=== PATIENT | female | born 1950 | race Caucasian/White ===

== ENCOUNTER 2016-06-22 18:28 | Emergency (ER) ==
[2016-06-22 18:45] VITALS: BP 184/102
[2016-06-22] MEDS ORDERED: DIPHTHERIA/TETANUS ADULT IM ONE (18:53)
[2016-06-22] MEDS ORDERED: XYLOCAINE-MPF 1% INJ ONE (18:53)
--- NOTE | 2016-06-22 19:37 | PROVIDER DOCUMENTATION ---
Addendum entered and electronically signed by Trino Perez PA 20:01: Procedures - LACERATION/WOUND REPAIR/FB Left Face Wound Location: Other: forehead Wound Length: 2cm Wound's Depth, Shape: superficial, linear, contused tissue Irrigated with Saline?: Yes Prepped with: Hibiclens, Kit Utilized, Sterile Drapes Applied Anesthetic: 1%, Lidocaine/Xylocaine Volume of Anesthetic (ml's): 4 Wound Repaired with: Sutures Suture Size/Type: 4.0, Non-Absorbable, Nylon Number of Sutures: 3 Layer Closure?: No Sterile Dressing Applied?: Yes Splint Applied?: No Sling Applied?: No Post Procedure Neurovascular Exam: N/A Procedure Comment: performed by medical student; observed by me; no complications Original Note: HPI-Rash/Wound/ReCheck - General Chief Complaint: Laceration[s] Stated Complaint: HEAD INJURY FROM FALL Time Seen by Provider: 06/22/16 18:50 Source: patient Allergies/Adverse Reactions: Allergies Allergy/AdvReac Type Severity Reaction Status Date / Time No Known Allergies Allergy Verified 08/15/13 15:03 Home Medications: Home Medication List Medication Instructions Recorded Confirmed Last Taken Type No Home Medications 08/15/13 08/15/13 Unknown History - History of Present Illness-Dermatology Nature of Presenting Problem: Pt presents today c complaints of laceration to the left forehead. She reports that she tripped and struck her head on a stereo. No LOC. No blood thinners. No active bleeding. No other issues or complaints. Location: reports: face Quality: reports: painful Severity: reports: mild Onset/Duration: reports: just prior to arrival Timing: reports: still present Context/Associated Symptoms: reports: laceration, bruising/hematoma Locality of Occurance: Home Similar Symptoms Previously?: No Recently seen or treated by another doctor?: No Review of Systems - Adult - REVIEW OF SYSTEMS - ADULT Constitutional: reports: no symptoms reported. denies: chills, fever Eyes: reports: no symptoms reported. denies: discharge, dry eyes Ears, Nose, Mouth & Throat: reports: no symptoms reported. denies: ear discharge, ear pain Cardiovascular: reports: no symptoms reported. denies: chest pain, edema Respiratory: reports: no symptoms reported. denies: chronic cough, cough Gastrointestinal: reports: no symptoms reported. denies: abdominal pain, hematemesis Genitourinary: reports: no symptoms reported. denies: dysuria, discharge Musculoskeletal: reports: no symptoms reported. denies: bone pain, back pain Integumentary: reports: see HPI. denies: mole changes, nail changes Neurological: reports: no symptoms reported. denies: dizziness/vertigo, headache/migraines Psychiatric: reports: no symptoms reported. denies: anxiety, anti-depressant use Endocrine: reports: no symptoms reported Hematologic/Lymphatic: reports: no symptoms reported Allergic/Immunologic: reports: no symptoms reported All Other Systems: Reviewed and Negative Past History - Adult - PAST MEDICAL HISTORY-ADULT Review of Records: reports: Old Records Reviewed, Nursing Assessment Review, Medications Reviewed, Social history reviewed & non-contributory. Major Childhood Illnesses: reports: denies history Cardiovascular: reports: denies history Respiratory: reports: denies history Gastrointestinal: reports: denies history Obstetrical/Gynecological: reports: denies history Genitourinary: reports: denies history Musculoskeletal: reports: denies history Neurological: reports: denies history Psychiatric: reports: denies history Endocrine/Immune: reports: denies history Other Conditions: reports: denies history - PRIOR SURGERIES/PROCEDURES Surgical/Procedure History: reports: reviewed, not pertinent - PRIOR HOSPITALIZATIONS Prior Hospitalizations: reports: for other non-related - IMMUNIZATION STATUS Childhood Immunizations: See Nurse Assessment - FAMILY HISTORY Family History: reviewed, not pertinent Physical Exam-General - PHYSICAL EXAM-ADULT Initial Vital Signs Reviewed: Yes - CONSTITUTIONAL General Appearance: appears well, alert, no apparent distress - EYES Eyes: PERRL/EOMI, pink conjunctivae - HEAD, EARS, NOSE, MOUTH & THROAT HENMT: normocephalic/atraumatic, moist mucous membranes, normal ENT inspection - NECK Neck: non-tender, full range of motion, supple, normal inspection - RESPIRATORY Respiratory: chest non-tender, lungs clear, normal breath sounds, no pleuratic chest pain, no respiratory distress, no accessory muscle use - CARDIOVASCULAR Cardiovascular: normal peripheral pulses, regular rate, rhythm - GASTROINTESTINAL (ABDOMEN) Abdominal Exam: normal bowel sounds, non tender, soft - MUSCULOSKELETAL Back Exam: normal inspection Extremity: normal range of motion, non-tender, normal gait, normal inspection - SKIN Integumentary: normal turgor, warm/dry, laceration(s), tenderness - NEUROLOGIC Neurologic: grossly normal, no motor/sensory deficits - PSYCHIATRIC Psych/Mental Status: normal mood/affect, normal thought content, normal thought process, oriented x 3 Progress - PLAN OF CARE/RESULTS Progress/Plan/Lab Results: Orders Category Date Time Status Suture Tray Set-Up DIRECTED Care 06/22/16 18:53 Active Diphtheria/Tetanus Adult Med 06/22/16 18:53 Discontinued 0.5 ml IM .ONCE ONE Lidocaine 1% Pf [Xylocaine-Mpf 1%] Med 06/22/16 18:53 Discontinued See Dose Instructions INJ NOW ONE Vital Signs Temp Pulse Resp BP Pulse Ox 06/22/16 18:43 97.6 F 102 H 18 184/102 96 No Known Allergies Allergy (Verified 08/15/13 15:03) No Home Medications 08/15/13 Departure - Departure Time of Disposition Order: 19:56 DIAGNOSIS: Forehead laceration Qualifiers: Encounter type: initial encounter Qualified Code(s): S01.81XA - Laceration without foreign body of other part of head, initial encounter Disposition: HOME 01 Certified Medical Emergency: Urgent Condition: Good Additional Instructions: Keep area clean and dry. Follow up in 5-7 days for suture removal. ED Follow Up Instructions: You have been treated by a care provider in the Emergency Department. These instructions are being provided to you so you can have an understanding of how to care for yourself upon discharge. Upon discharge from the Emergency Department, you are responsible for making arrangements for follow-up care by a physician of your choice. Take all prescribed medications as directed. Return to the Emergency Department immediately for any new or worsening symptoms. You may call the Physician Referral phone number at [phone] to obtain a list of Physicians who are taking new patients. Attestation - Physician/ DEISY Attestation Patient care was provided by Advanced Practice Provider:: Yes Advanced Practice Provider:: Trino Perez Advanced Practice Provider documentation review:: The Mid-level provider documentation, treatment plan and medical decision making was reviewed by the physician who agrees with all treatment and medical decision making by the MLP.
== END 2016-06-22 20:05 | disposition home or self-care (01) ==
LOC: P.ED 18:28
DX: S01.81XA Laceration without foreign body of other part of head, initial encounter (principal); W01.0XXA Fall on same level from slipping, tripping and stumbling without subsequent striking against object, initial encounter; Z23 Encounter for immunization
CPT/HCPCS: 90471; 90714

== ENCOUNTER 2016-06-28 14:25 | Emergency (ER) ==
[2016-06-28 14:38] VITALS: BP 166/88
--- NOTE | 2016-06-28 15:29 | PROVIDER DOCUMENTATION ---
HPI-Rash/Wound/ReCheck - General Chief Complaint: Suture/Staple Removal Stated Complaint: SUTURE/STAPLE REMOVAL Time Seen by Provider: 06/28/16 15:24 Allergies/Adverse Reactions: Allergies Allergy/AdvReac Type Severity Reaction Status Date / Time No Known Allergies Allergy Verified 08/15/13 15:03 Home Medications: Home Medication List Medication Instructions Recorded Confirmed Last Taken Type No Home Medications 08/15/13 08/15/13 Unknown History Past History - Adult - PAST MEDICAL HISTORY-ADULT Major Childhood Illnesses: reports: denies history Cardiovascular: reports: denies history Respiratory: reports: denies history Gastrointestinal: reports: denies history Obstetrical/Gynecological: reports: denies history Genitourinary: reports: denies history Musculoskeletal: reports: denies history Neurological: reports: denies history Psychiatric: reports: denies history Endocrine/Immune: reports: denies history Other Conditions: reports: denies history - PRIOR SURGERIES/PROCEDURES Surgical/Procedure History: reports: reviewed, not pertinent - PRIOR HOSPITALIZATIONS Prior Hospitalizations: reports: for other non-related - IMMUNIZATION STATUS Childhood Immunizations: See Nurse Assessment - FAMILY HISTORY Family History: reviewed, not pertinent Departure - Departure Time of Disposition Order: 15:28 DIAGNOSIS: Encounter for removal of sutures Disposition: HOME 01 Certified Medical Emergency: Emergent Condition: Stable Additional Instructions: ED Follow Up Instructions: You have been treated by a care provider in the Emergency Department. These instructions are being provided to you so you can have an understanding of how to care for yourself upon discharge. Upon discharge from the Emergency Department, you are responsible for making arrangements for follow-up care by a physician of your choice. Take all prescribed medications as directed. Return to the Emergency Department immediately for any new or worsening symptoms. You may call the Physician Referral phone number at [phone] to obtain a list of Physicians who are taking new patients. Referrals: Favian Flores MD [STAFF PHYSICIAN] - None,PCP [Primary Care Provider] - Instructions: Suture Removal, Care After
--- NOTE | 2016-06-28 15:31 | PROVIDER DOCUMENTATION ---
HPI-Rash/Wound/ReCheck - General Source: patient, family - History of Present Illness-Dermatology Location: reports: face (L forehead) Quality: reports: none Onset/Duration: reports: 6 days ago Timing: reports: still present, intermittent Context/Associated Symptoms: reports: other (suture removal) Identifiable cause?: Yes (fall ) Exposure: reports: unknown cause Locality of Occurance: Home Similar Symptoms Previously?: Yes Recently seen or treated by another doctor?: Yes - Recheck Treated days ago.: 6 Previous Treatment: other (suture removal) Antibiotics given: none Symptoms since procedure:: reports: no complaints <Allyssa Gonzales - Last Filed: 06/28/16 15:27> <Shahbaz Hernandez - Last Filed: 06/28/16 15:32> - General Chief Complaint: Suture/Staple Removal Stated Complaint: SUTURE/STAPLE REMOVAL Time Seen by Provider: 06/28/16 15:24 Allergies/Adverse Reactions: Allergies Allergy/AdvReac Type Severity Reaction Status Date / Time No Known Allergies Allergy Verified 08/15/13 15:03 Home Medications: Home Medication List Medication Instructions Recorded Confirmed Last Taken Type No Home Medications 08/15/13 08/15/13 Unknown History - History of Present Illness-Dermatology Nature of Presenting Problem: Pt is 65 y/o F presents to the ED with suture removal. Pt states falling Friday. Pt states hitting head on stereo. Pt denies pain. Pt denies F (Allyssa Gonzales) Review of Systems - Adult - REVIEW OF SYSTEMS - ADULT Constitutional: reports: no symptoms reported Eyes: reports: no symptoms reported Ears, Nose, Mouth & Throat: reports: no symptoms reported Cardiovascular: reports: no symptoms reported Respiratory: reports: no symptoms reported Gastrointestinal: reports: no symptoms reported Genitourinary: reports: no symptoms reported Musculoskeletal: reports: no symptoms reported Integumentary: reports: no symptoms reported Neurological: reports: no symptoms reported Psychiatric: reports: no symptoms reported Endocrine: reports: no symptoms reported Hematologic/Lymphatic: reports: no symptoms reported Allergic/Immunologic: reports: no symptoms reported All Other Systems: Reviewed and Negative <Allyssa Gonzales - Last Filed: 06/28/16 15:27> Past History - Adult - PAST MEDICAL HISTORY-ADULT Review of Records: reports: Nursing Assessment Review, Medications Reviewed, Social history reviewed & non-contributory. Major Childhood Illnesses: reports: denies history Cardiovascular: reports: denies history Respiratory: reports: denies history Gastrointestinal: reports: denies history Obstetrical/Gynecological: reports: denies history Genitourinary: reports: denies history Musculoskeletal: reports: denies history Neurological: reports: denies history Psychiatric: reports: denies history Endocrine/Immune: reports: denies history Other Conditions: reports: denies history - PRIOR SURGERIES/PROCEDURES Surgical/Procedure History: reports: reviewed, not pertinent, - PRIOR HOSPITALIZATIONS Prior Hospitalizations: reports: for other non-related - IMMUNIZATION STATUS Childhood Immunizations: See Nurse Assessment Flu Vaccine: See Nurse Assessment - FAMILY HISTORY Family History: reviewed, not pertinent - SOCIAL HISTORY Smoking: denies Substance Use: denies Living Situation: family <Allyssa Gonzales - Last Filed: 06/28/16 15:27> Physical Exam-General - PHYSICAL EXAM-ADULT Initial Vital Signs Reviewed: Yes - CONSTITUTIONAL General Appearance: appears well, alert, no apparent distress - EYES Eyes: PERRL/EOMI, pink conjunctivae, fundi clear, no AV nicking - HEAD, EARS, NOSE, MOUTH & THROAT HENMT: normocephalic/atraumatic, moist mucous membranes, normal ENT inspection, TMs normal, pharynx normal - NECK Neck: non-tender, full range of motion, supple, normal inspection - RESPIRATORY Respiratory: chest non-tender, lungs clear, normal breath sounds, no pleuratic chest pain, no respiratory distress, no accessory muscle use - CARDIOVASCULAR Cardiovascular: normal peripheral pulses, regular rate, rhythm, no edema, no gallop, no JVD, no murmur - GASTROINTESTINAL (ABDOMEN) Abdominal Exam: normal bowel sounds, non tender, soft, no organomegaly, no pulsatile mass - LYMPHATIC Lymphatic: no adenopathy - MUSCULOSKELETAL Back Exam: normal inspection, no CVA tenderness, no vertebral tenderness Extremity: normal range of motion, non-tender, normal gait, normal inspection, no pedal edema, no calf tenderness, normal capillary refill - SKIN Integumentary: normal color, normal turgor, warm/dry, ecchymosis (to L forehead) , other (suture removed to L forehead) - NEUROLOGIC Neurologic: grossly normal - PSYCHIATRIC Psych/Mental Status: normal mood/affect, oriented x 3 <Allyssa Gonzales - Last Filed: 06/28/16 15:27> Progress <Allyssa Gonzales - Last Filed: 06/28/16 15:27> <Shahbaz Hernandez - Last Filed: 06/28/16 15:32> - PLAN OF CARE/RESULTS Progress/Plan/Lab Results: Vital Signs - 24 hr 06/28/16 14:36 Temperature 97.8 F Pulse Rate 96 H Respiratory 18 Rate Blood Pressure 166/88 O2 Sat by Pulse 100 Oximetry 1535 - 3 sutures removed from L forehead by Dr. Hernandez (Allyssa Gonzales) Departure <Allyssa Gonzales - Last Filed: 06/28/16 15:27> - Departure Time of Disposition Order: 15:32 Certified Medical Emergency: Emergent <Shahbaz Hernandez - Last Filed: 06/28/16 15:32> - Departure DIAGNOSIS: Encounter for removal of sutures Disposition: HOME 01 Condition: Stable Additional Instructions: ED Follow Up Instructions: You have been treated by a care provider in the Emergency Department. These instructions are being provided to you so you can have an understanding of how to care for yourself upon discharge. Upon discharge from the Emergency Department, you are responsible for making arrangements for follow-up care by a physician of your choice. Take all prescribed medications as directed. Return to the Emergency Department immediately for any new or worsening symptoms. You may call the Physician Referral phone number at [phone] to obtain a list of Physicians who are taking new patients. Referrals: Favian Flores MD [STAFF PHYSICIAN] - None,PCP [Primary Care Provider] - Instructions: Suture Removal, Care After Attestation - Scribe Verification/Attestation Scribe:: Allyssa Gonzales Acting as Scribe for:: Shahbaz Hernandez Scribe documention review:: This chart was documented by a scribe and accurately reflects the service the provider performed and the decisions made by the provider. <Allyssa Gonzales - Last Filed: 06/28/16 15:27> Physician Attestation
== END 2016-06-28 15:45 | disposition home or self-care (01) ==
LOC: P.ED 14:25
DX: S01.81XD Laceration without foreign body of other part of head, subsequent encounter (principal); S00.83XD Contusion of other part of head, subsequent encounter; W19.XXXD Unspecified fall, subsequent encounter; W22.8XXD Striking against or struck by other objects, subsequent encounter
CPT/HCPCS: 99282

== ENCOUNTER 2018-12-28 16:17 | Inpatient (IN) ==
[2018-12-28] MEDS ORDERED: ASPIRIN PO ONE (16:31)
[2018-12-28 17:19] LABS: BASO# 0.03 X1000 (0.0-0.2); BASO% 0.4 % (0.0-0.8); HEMATOCRIT 35.1 % (37.0-47.0); HEMOGLOBIN 11.1 g/dL (12.0-16.0); IMM GRAN# 0.01 X1000 (0.0-0.04); IMM GRAN% 0.1 % (0.0-0.5); LYMPH# 1.39 X1000 (1.2-3.4); LYMPH% 19.3 % (20.5-51.1); MCH 25.7 PG (27-31); MCHC 31.6 g/dL (33-37); MCV 81.3 FL (81-99); MONO# 0.43 X1000 (0.11-0.59); MPV 8.3 FL (7.4-10.4); NEUT# 5.34 X1000 (1.4-6.5); NEUT% 74.2 % (42.2-75.2); PLT 206 X1000 (130-400); RBC 4.32 XMIL (4.2-5.4)
[2018-12-28] MEDS ORDERED: DUONEB (A & A) INH ONE (17:22)
[2018-12-28] MEDS ORDERED: LASIX IV ONE (17:22)
[2018-12-28] MEDS ORDERED: NS 500 ML IV ONE (17:22)
--- NOTE | 2018-12-28 17:28 | PROVIDER DOCUMENTATION ---
HPI-Respiratory General - General Chief Complaint: Shortness of Breath Stated Complaint: SOB Time Seen by Provider: 12/28/18 17:03 Source: patient, family Allergies/Adverse Reactions: Patient Allergies Allergy/AdvReac Type Severity Reaction Status Date / Time No Known Allergies Allergy Verified 12/28/18 17:48 Home Medications: Home Medication List Medication Instructions Recorded Confirmed Last Taken Type Ibuprofen 4 mg PO BID PRN 12/28/18 12/28/18 Unknown History - History of Present Illness-Resp Nature of Presenting Problem: C/O SOB worsening over the last week, difficulty sleeping secondary to it. Usually sleeps in a recliner, but has been too short of breath. Also notes VASQUEZ and PND. Also has polydypsia and polyuria. Also has had cellulitis left calf in the past, and this has gotten worse over the last week. Denies fever, chills, n/v. Does have chest tightness, and states her legs are more swollen than usual. Has never had these symptoms before. Rarely comes to the doctor. Just got assigned Silvia Read as a PCP, and has an appointment in 3 days, but states she couldn't wait due to SOB. Quality of Pain: reports: pressure Severity in ED: reports: mild Onset/Duration: reports: last week Timing: reports: still present, constant, getting worse Context: denies: recent URI Exposure: reports: unknown cause Cough Quality/Degree: reports: mild Episode Frequency: no prior episodes Current Respiratory Medication Therapy: Initiated none Modifying Factors: improves with: rest, sitting upright. worse with: exertion, lying down Associated Symptoms: reports: chest pain/soreness, cough, shortness of breath, short of breath, sweaty Similar Symptoms Previously?: No Recently seen or treated by another doctor?: No Review of Systems - Adult - REVIEW OF SYSTEMS - ADULT Constitutional: reports: see HPI, weight gain. denies: fever Eyes: reports: discharge (left eye, due to bliondness for many years) Ears, Nose, Mouth & Throat: reports: no symptoms reported Cardiovascular: reports: see HPI, chest pain, edema, orthopnea, PND Respiratory: reports: see HPI, cough, dyspnea on exertion, shortness of breath. denies: chronic cough, excessive sputum production, hemoptysis, pleurisy, wheezing Gastrointestinal: reports: no symptoms reported Genitourinary: reports: no symptoms reported Musculoskeletal: reports: no symptoms reported Integumentary: reports: rash (left calf extending upwards medial thigh) Neurological: reports: no symptoms reported Psychiatric: reports: no symptoms reported Endocrine: reports: no symptoms reported Hematologic/Lymphatic: reports: no symptoms reported Allergic/Immunologic: reports: no symptoms reported All Other Systems: Reviewed and Negative Past History - Adult - PAST MEDICAL HISTORY-ADULT Review of Records: reports: Old Records Reviewed, Nursing Assessment Review, Medications Reviewed, Social history reviewed & non-contributory. Major Childhood Illnesses: reports: denies history Cardiovascular: reports: denies history Respiratory: reports: denies history Gastrointestinal: reports: cholelithiasis Obstetrical/Gynecological: reports: denies history Genitourinary: reports: chronic UTI's Musculoskeletal: reports: denies history Neurological: reports: denies history Psychiatric: reports: denies history Endocrine/Immune: reports: denies history Other Conditions: reports: blindness - PRIOR SURGERIES/PROCEDURES Surgical/Procedure History: reports: reviewed, not pertinent, , orthopedic (extremity) (ankle), other (eye) - PRIOR HOSPITALIZATIONS Prior Hospitalizations: reports: for other non-related - IMMUNIZATION STATUS Childhood Immunizations: See Nurse Assessment Flu Vaccine: See Nurse Assessment - FAMILY HISTORY Family History: reviewed, not pertinent - SOCIAL HISTORY Smoking: non-smoker Substance Use: none/never Alcohol Use Frequency: never Living Situation: family Physical Exam-General - PHYSICAL EXAM-ADULT Initial Vital Signs Reviewed: Yes (Tachycardia, hypertensive, tachypneic) - CONSTITUTIONAL General Appearance: alert, mild distress, obese, slow to respond - EYES Eyes: conjuctival exudate (left eye), other (blind both eyes) - HEAD, EARS, NOSE, MOUTH & THROAT HENMT: normocephalic/atraumatic, moist mucous membranes, normal ENT inspection, pharynx normal, other (poor dentition) - NECK Neck: non-tender, full range of motion, supple - RESPIRATORY Respiratory: chest non-tender, no pleuratic chest pain, no respiratory distress, no accessory muscle use, decreased breath sounds, rhonchi, dull on percussion, increased rate - CARDIOVASCULAR Cardiovascular: no gallop, no JVD, no murmur, tachycardia, PMI displaced laterally, other (occasional ectopy) - GASTROINTESTINAL (ABDOMEN) Abdominal Exam: normal bowel sounds, non tender, soft, no organomegaly, no pulsatile mass - LYMPHATIC Lymphatic: no adenopathy - MUSCULOSKELETAL Back Exam: normal inspection, no CVA tenderness, no vertebral tenderness Extremity: normal range of motion, non-tender, normal gait, no calf tenderness, normal capillary refill, pedal edema (4+ bilateral pitting) - SKIN Integumentary: normal turgor, warm/dry, rash (scaly erythematous rash posterior calf with raised edges, blanches on palpation, no warm, no fluctuance) - NEUROLOGIC Neurologic: no motor/sensory deficits, abnormal qa consultant II-XII (blind in both eyes), negative romberg's sign. negative: abnormal gait - PSYCHIATRIC Psych/Mental Status: normal mood/affect, normal thought content, normal thought process, oriented x 3 - HEART Score HEART Score: History: Slightly Suspicious HEART Score: Age: > or = 65 Years HEART Score: Risk Factors for Atherosclerotic Disease: 1 or 2 Risk Factors HEART Score: Troponin: < or = Normal Limit Progress - PLAN OF CARE/RESULTS Progress/Plan/Lab Results: Laboratory Results - last 24 hr 12/28/18 12/28/18 12/28/18 17:05 17:05 17:05 WBC 7.20 RBC 4.32 Hgb 11.1 L Hct 35.1 L MCV 81.3 MCH 25.7 L MCHC 31.6 L RDW Std Deviation 17.0 H Plt Count 206 MPV 8.3 Immature Gran % (Auto) 0.1 Neut % (Auto) 74.2 Lymph % (Auto) 19.3 L [place] % (Auto) 6.0 Eos % (Auto) 0.0 Baso % (Auto) 0.4 Immature Gran # (Auto) 0.01 Neut # (Auto) 5.34 Lymph # (Auto) 1.39 [place] # (Auto) 0.43 Eos # (Auto) 0.00 Baso # (Auto) 0.03 PT INR PTT (Actin FS) Specimen Type Sample Site pH pCO2 pO2 HCO3 Base Excess Oxyhemoglobin ABG O2 Sat (Calculated) ABG O2 Saturation ABG Carboxyhemoglobin ABG Methemoglobin Garo Test A-a O2 Difference Total Hemoglobin Lactate Liter Flow Blood Gas Modality FiO2 % Sodium 134 L Potassium 4.1 Chloride 96 L Carbon Dioxide 26 Anion Gap 12 BUN 12 Creatinine 0.6 Estimated GFR/1.73 m2 > 60 BUN/Creatinine Ratio 20 Glucose 152 H Calculated Osmolality 271 Calcium 8.4 L Total Bilirubin 0.60 AST 22 ALT 9 L Alkaline Phosphatase 151 H Creatine Kinase 42 Troponin T [id number]-T-Qbapjfkvwib Pept 6121 H Total Protein 6.8 Albumin 3.5 Globulin 3.0 Albumin/Globulin Ratio 1.0 Plasma Lactate Urine Source Urine Color Urine Clarity Urine pH Ur Specific [place] Urine Protein Urine Ketones Urine Blood Urine Nitrite Urine Bilirubin Urine Urobilinogen Urine Microscopic RBC Urine WBC Urine Microscopic WBC Ur Epithelial Cells Urine Crystals Urine Bacteria Urine Casts Urine Yeast Urine Glucose 12/28/18 12/28/18 12/28/18 17:05 17:05 17:05 WBC RBC Hgb Hct MCV MCH MCHC RDW Std Deviation Plt Count MPV Immature Gran % (Auto) Neut % (Auto) Lymph % (Auto) [place] % (Auto) Eos % (Auto) Baso % (Auto) Immature Gran # (Auto) Neut # (Auto) Lymph # (Auto) [place] # (Auto) Eos # (Auto) Baso # (Auto) PT 14.1 INR 1.04 PTT (Actin FS) 32.6 Specimen Type Sample Site pH pCO2 pO2 HCO3 Base Excess Oxyhemoglobin ABG O2 Sat (Calculated) ABG O2 Saturation ABG Carboxyhemoglobin ABG Methemoglobin Garo Test A-a O2 Difference Total Hemoglobin Lactate Liter Flow Blood Gas Modality FiO2 % Sodium Potassium Chloride Carbon Dioxide Anion Gap BUN Creatinine Estimated GFR/1.73 m2 BUN/Creatinine Ratio Glucose Calculated Osmolality Calcium Total Bilirubin AST ALT Alkaline Phosphatase Creatine Kinase Troponin T < 0.010 Fjl-[id number]-Yrxpridazju Pept Total Protein Albumin Globulin Albumin/Globulin Ratio Plasma Lactate 1.3 Urine Source Urine Color Urine Clarity Urine pH Ur Specific [place] Urine Protein Urine Ketones Urine Blood Urine Nitrite Urine Bilirubin Urine Urobilinogen Urine Microscopic RBC Urine WBC Urine Microscopic WBC Ur Epithelial Cells Urine Crystals Urine Bacteria Urine Casts Urine Yeast Urine Glucose 12/28/18 12/28/18 17:28 17:50 WBC RBC Hgb Hct MCV MCH MCHC RDW Std Deviation Plt Count MPV Immature Gran % (Auto) Neut % (Auto) Lymph % (Auto) [place] % (Auto) Eos % (Auto) Baso % (Auto) Immature Gran # (Auto) Neut # (Auto) Lymph # (Auto) [place] # (Auto) Eos # (Auto) Baso # (Auto) PT INR PTT (Actin FS) Specimen Type ARTERIAL Sample Site L RADIAL pH 7.47 H pCO2 38 pO2 100 HCO3 27.9 H Base Excess 3.9 H Oxyhemoglobin 95.4 ABG O2 Sat (Calculated) 16.0 ABG O2 Saturation 98.8 ABG Carboxyhemoglobin 2.30 ABG Methemoglobin 1.1 Garo Test YES A-a O2 Difference 52.0 Total Hemoglobin 11.8 Lactate 1.10 Liter Flow 2.0 Blood Gas Modality CANNULA FiO2 % 28.0 Sodium Potassium Chloride Carbon Dioxide Anion Gap BUN Creatinine Estimated GFR/1.73 m2 BUN/Creatinine Ratio Glucose Calculated Osmolality Calcium Total Bilirubin AST ALT Alkaline Phosphatase Creatine Kinase Troponin T [id number]-T-Zgpgctzklvv Pept Total Protein Albumin Globulin Albumin/Globulin Ratio Plasma Lactate Urine Source CATH Urine Color YELLOW Urine Clarity VERY CLOUDY A Urine pH 6.0 Ur Specific [place] 1.015 Urine Protein 1+(30 mg/dL) A Urine Ketones NEGATIVE Urine Blood 4+ Urine Nitrite POSITIVE A Urine Bilirubin NEGATIVE Urine Urobilinogen NORMAL Urine Microscopic RBC TNTC A Urine WBC 2+ A Urine Microscopic WBC TNTC A Ur Epithelial Cells >10 A Urine Crystals NONE SEEN Urine Bacteria 1+ Urine Casts NONE SEEN Urine Yeast NONE SEEN Urine Glucose NEGATIVE Orders Category Date Time Status Admit - [facility] Routine AdmDCTranf 12/28/18 22:23 Active Cardiac Monitoring DIRECTED Care 12/28/18 16:31 Completed Chung Cath Insertion ORDERED Care 12/28/18 17:20 Completed Oxygen Therapy- ED Nursing DIRECTED Care 12/28/18 16:31 Completed Saline Loc NOW Care 12/28/18 16:31 Completed Vital Signs Order Q 8-HR .ASSESS Care 12/28/18 22:23 Active Z-Document. for Tele Applied ORDERED Care 12/28/18 22:23 Completed Heart Healthy Diet Diet 12/28/18 22:23 Active CHEST-PORTABLE [RAD] Stat Exams 12/28/18 17:21 Completed ABG [RESP] Routine Lab 12/28/18 17:28 Completed BLOOD CULTURE [BLDCUL] Stat Lab 12/28/18 17:35 Results CBC WITH ELECTRONIC DIFF [HEME] Stat Lab 12/28/18 17:05 Completed CK PROFILE [SP CHEM] Stat Lab 12/28/18 17:05 Completed COMPREHENSIVE METABOLIC PANEL [CHEM] Stat Lab 12/28/18 17:05 Completed LACTATE, PLASMA [CHEM] Stat Lab 12/28/18 17:05 Completed PRO B-NATRIURETIC PEPTIDE Stat Lab 12/28/18 17:05 Completed PROTIME WITH INR [COAG] Stat Lab 12/28/18 17:05 Completed PTT [COAG] Stat Lab 12/28/18 17:05 Completed TROPONIN T Stat Lab 12/28/18 17:[address] W/POSS RFLX CULT [URINALYSIS] Stat Lab 12/28/18 17:50 Completed 0.9% Sodium Chloride Inj [Ns] 500 ml Med 12/28/18 17:22 Discontinued IV 999 mls/hr Albuterol 2.5MG/Ipratrop 0.5MG [Duoneb (A & A)] Med 12/28/18 17:22 Discontinued 3 ml INH NOW ONE Aspirin Med 12/28/18 16:31 Discontinued 325 mg PO NOW ONE Clonidine [Catapres] Med 12/28/18 19:33 Discontinued 0.2 mg PO NOW ONE Furosemide [Lasix] Med 12/28/18 17:22 Discontinued 40 mg IV NOW ONE Nitroglycerin Med 12/28/18 19:37 Discontinued 1 inch TOP NOW ONE Aerosol Treatments Routine Oth 12/28/18 17:22 Completed Aerosol Treatments Stat Oth 12/28/18 17:22 Completed Oxygen Device Routine Oth 12/28/18 22:23 Active Telemetry [OM.EQ] Routine Oth 12/28/18 22:23 Active EKG [EKG] Stat Ther 12/28/18 16:31 Draft Transfer/Admit Order [TRANSFER] Routine Transfer 12/28/18 20:36 Completed Result Diagrams: 12/28/18 17:05 12/28/18 17:05 - REASSESSMENT Reassessment #1 Time Reassessed: 18:23 Status: improving (Given ASA, duoneb and lasix. Awaiting troponin and Pro0-BNP) Reassessment #2 Time Reassessed: 07:39 Status: unchanged (Although I passed this patient off at shift change to Dr. Hernandez, I find no documentation in the provider notes regarding her disposition. I have read nursing notes and have surmised that she was admitted to Dr. House, hospitalist for new onset CHF with volume overload and UTI and dyspnea.) - EKG 1 Time of EKG reading by physician:: 17:00 EKG Read and Signed by:: Zach Lafleur EKG Interpretation (*Must complete 3 of following elements*): Abnormal Rate: 111 Rhythm: suns tachycardia [place]: normal QRS: RBB, poor R wave progression, LVH UT Interval: normal ST Wave: non-specific ST changes Prior EKG Comparison: no prior EKG - CHANGE OF SHIFT REPORT (ED Provider) 1 Report Given and Care Transferred to:: [facility] Time of Transfer: 19:00 Items Pending: Labs, Other (re-evaluation) Departure - Departure Date of Disposition Decision: 12/28/18 Time of Disposition Decision: 22:00 DIAGNOSIS: Dyspnea and respiratory abnormalities, New onset of congestive heart failure UTI (urinary tract infection) Qualifiers: Urinary tract infection type: acute cystitis Hematuria presence: with hematuria Qualified Code(s): N30.01 - Acute cystitis with hematuria Pressure ulcer of buttock Qualifiers: Pressure injury stage: stage 2 Laterality: unspecified laterality Qualified Code(s): L89.302 - Pressure ulcer of unspecified buttock, stage 2 Disposition: ADMITTED INPATIENT 09 Certified Medical Emergency: Emergent Condition: Stable - Critical Care Note This patient required my direct & personal management of CC.: No Attestation - Physician/ DEISY Attestation Patient care was provided by Advanced Practice Provider:: No The physician spent face to face time with patient:: Yes Advanced Practice Provider documentation review:: Supervising physician onsite and consulted in the evaluation and care of this patient. The physician did have a face to face encounter with the patient.
--- NOTE | 2018-12-28 17:39 | EKG Report ---
Test Performed on : 12/28/2018 4:56:14 PM Test Reason : sob chest pressure Blood Pressure : / mmHG Vent. Rate : 111 BPM Atrial Rate : 111 BPM P-R Int : 170 ms QRS Dur : 132 ms QT Int : 356 ms P-R-T Axes : 043 -29 012 degrees QTc Int : 484 ms Sinus tachycardia. with occasional premature ventricular complexes. Possible Left atrial enlargement Right bundle branch block Left ventricular hypertrophy Abnormal ECG No previous ECGs available Unconfirmed Result
[2018-12-28 17:44] LABS: INR 1.04; PROTIME 14.1 Seconds (11.0-16.0); PTT 32.6 Seconds (22.3-41.8)
[2018-12-28 17:50] LABS: BE 3.9 mmoll (-3.0-3.0); BLOOD TYPE ARTERIAL; HCO3-(ACT) 27.9 mmoll (20.0-26.0); METHB 1.1 % (0.0-1.5); O2HB 95.4 % (95.0-99.0); PCO2(98.6) 38 mmHg (35-45); PO2(98.6) 100 mmHg (60-100); SAMPLE BLOOD; SAO2 98.8 % (95.0-100.0); THB 11.8 g/dL (11.5-17.4); pH(98.6) 7.47 (7.35-7.45)
[2018-12-28 17:54] LABS: ALLEN TEST YES; MODALITY CANNULA
[2018-12-28 18:08] LABS: AGAP 12; ALBUMIN 3.5 g/dL (3.5-5.0); ALKALINE PHOSPHATASE 151 U/L (32-104); BUN 12 mg/dL (8-22); CALCIUM 8.4 mg/dL (8.8-10.2); CHLORIDE 96 mmol/L (98-107); CK PROFILE 42 U/L (24-173); COSMO 271; CREATININE 0.6 mg/dL (0.5-0.9); ESTIMATED GFR > 60; GLUCOSE 152 mg/dL (70-104); GOT 22 U/L (10-30); GPT 9 U/L (10-36); POTASSIUM 4.1 mmol/L (3.5-5.1); SODIUM 134 mmol/L (136-145); TCO2 26 mmol/L (25-35); TOTAL PROTEIN 6.8 g/dL (6.3-8.3)
--- NOTE | 2018-12-28 18:24 | ED EKG INTERP ---
This chart was entered by Azalia Naik Scribe, acting as scribe for Zach Lafleur MD. EKG Interpretation - EKG Time of EKG reading by physician:: 17:00 EKG Read and Signed by:: Zach Lafleur EKG Interpretation (*Must complete 3 of following elements*): Abnormal (possible left atrila enlargement) Rate: 111 Rhythm: Sinus tachycardia QRS: RBB, LVH, PVC's (occasional) ST Wave: normal Attestation - Physician/ DEISY Attestation Patient care was provided by Advanced Practice Provider:: No The physician spent face to face time with patient:: Yes Advanced Practice Provider documentation review:: Supervising physician onsite and consulted in the evaluation and care of this patient. The physician did have a face to face encounter with the patient. This chart was documented by the indicated scribe, (Azalia Naik Scribe) and accurately reflects the services I performed and decisions made by , Zach Lafleur MD, as attested by the provider's signature.
--- NOTE | 2018-12-28 18:34 | Diag Imaging Result Doc PS360 ---
EXAM: CHEST-PORTABLE INDICATION: dyspnea TECHNIQUE: One view COMPARISON: 03/10/2019 FINDINGS: Lung volumes are very low. This causing central vascular crowding. There may be a component of mild pulmonary venous congestion as well. There is no discrete pleural fluid collection or pneumothorax. There is stable cardiomegaly. IMPRESSION: Low lung volumes, cardiomegaly, and possible mild pulmonary venous congestion. Electronically signed by Jagdeep Dawn 12/28/2018 6:31 PM
[2018-12-28 19:01] LABS: BILIRUBIN URINE NEGATIVE (NEGATIVE); BLOOD URINE 4+ (NEGATIVE); GLUCOSE URINE NEGATIVE (NEGATIVE); KETONE URINE NEGATIVE (NEGATIVE); LEUKOCYTES URINE 2+ (NEGATIVE); NITRITE URINE POSITIVE (NEGATIVE); PROTEIN URINE 1+(30 mg/dL) mg/dL (NEGATIVE); SP GRAVITY URINE 1.015; URINE BACTERIA 1+ /HFP; URINE EPITHELIAL CELLS >10 /HPF (<10); URINE RBC TNTC /HPF (<10); URINE WBC TNTC /HPF (<10); UROBILINOGEN URINE NORMAL
[2018-12-28 19:02] LABS: CLARITY VERY CLOUDY (CLEAR); COLOR YELLOW; URINE CAST NONE SEEN /LPF; URINE CRYSTAL NONE SEEN /HPF; URINE SOURCE CATH; URINE YEAST NONE SEEN /HPF
[2018-12-28] MEDS ORDERED: CATAPRES PO ONE (19:33)
[2018-12-28] MEDS ORDERED: NITROGLYCERIN TOP ONE (19:37)
[2018-12-29] MEDS: TYLENOL PO PRN ×3 (05:49→22:42)
[2018-12-29] MEDS: COREG PO SCH ×2 (09:32→22:42)
[2018-12-29] MEDS: LASIX IV SCH ×2 (09:32→22:43)
[2018-12-29] MEDS: ROCEPHIN 1 GM in NS 50 ML IV SCH (09:34)
[2018-12-29] MEDS: CLINDAMYCIN 600 MG/D5W 600 MG/50 ML IVPB IV SCH ×2 (10:17→18:08)
--- NOTE | 2018-12-29 11:51 | HISTORY AND PHYSICAL ---
PRIMARY CARE PHYSICIAN: Dr. Silvia Quintana. CHIEF COMPLAINT: Shortness of breath over the past 2 to 3 weeks that has progressively worsened with dyspnea on exertion, increased bilateral lower extremity edema, also noted to have some redness to the left inner calf and streaking up to her left thigh. HISTORY OF PRESENTING ILLNESS: This is a 68-year-old, female who presents to [facility] ER with increased shortness of breath, dyspnea on exertion, and bilateral lower extremity edema that has progressively worsened over the past 2 to 3 weeks. States she also has some chest tightness, but not chest pain. States that she has had swelling to her bilateral lower extremities and noted about a week ago a red spot on her inner left calf that is now streaking upward into her left thigh. It is mildly warm to touch, erythemic. She was just recently assigned to Dr. Silvia Quintana and had an appointment in 3 days but could not wait due to her shortness of breath. She had an elevated blood pressure on arrival of 193/119, but does not have a history of hypertension. Her chest x-ray showed cardiomegaly and possible mild pulmonary venous congestion. Her proBNP was 6121, and it certainly appears that she has a new onset congestive heart failure. She also is noted on her urinalysis to have positive nitrites, 2+ white blood cells, 1+ bacteria, and has a history of chronic UTIs, so she will be admitted for further evaluation and treatment. PAST MEDICAL HISTORY: Chronic UTIs and blindness. PAST SURGICAL HISTORY: section, ankle surgery, and eye surgery. FAMILY HISTORY: Reviewed and noncontributory. SOCIAL HISTORY: She currently lives with family. Denies any tobacco, alcohol, or illicit drug use. ALLERGIES: No known drug allergies. HOME MEDICATIONS: Ibuprofen 200 mg b.i.d. p.r.n. and will be held. LABORATORY DATA: Showed a white blood cell count of 7.20, hemoglobin 11.1, hematocrit 35.1, platelets 206,000. PT and INR of 14.1 and 1.04. ABG with a pH of 7.47, pCO2 of 38, pO2 100, bicarb 27.9 on 2 L via nasal cannula. Sodium 134, potassium 4.1, chloride 96, CO2 26, BUN of 12, creatinine 0.6, glucose 152. Cardiac enzymes negative. ProBNP of 6121. Plasma lactate of 1.3. Urinalysis with positive nitrites, 2+ white blood cells, 1+ bacteria. EKG showed sinus tachycardia with occasional PVCs at 111. Chest x-ray showed low lung volumes, cardiomegaly, and possible mild pulmonary venous congestion. REVIEW OF SYSTEMS: She denied any fever, chills, blurred vision, dizziness. Denied chest pain or coughing. She has had shortness of breath, dyspnea on exertion. Denied any abdominal pain, constipation, diarrhea. She has had some mild burning with urination and bilateral lower extremity edema. PHYSICAL EXAMINATION: On arrival she had a temperature of 98 degrees, pulse 108, respirations 20, blood pressure 203/88, saturating 94% on room air. Currently, blood pressure is down to 164/85. GENERAL: This is a 68-year-old, morbidly obese, female who is lying in the bed and answers questions appropriately. HEENT: Normocephalic, atraumatic. Normal ENT inspection. Oropharynx and nares are clear. Eyes: Patient is noted to be blind. Has had a left eye surgery. Extraocular movements appear to be intact but unable to follow with her eyes, but they do move independently. NECK: Normal inspection. Normal range of motion. LUNGS: Clear to auscultation bilaterally with equal lung expansion and chest wall movement. When she arrived, she did have some rhonchi and an increased rate, but that is improved at this time. HEART: Regular rate and rhythm. No murmurs, rubs, or gallops. ABDOMEN: Soft, nontender, nondistended. Bowel sounds are present x4 quadrants. SKIN: The patient is noted to have erythema to the left anterior calf that streaks up through her left thigh, mildly warm. NEUROLOGICAL: Cranial nerves II through XII appear grossly intact. ASSESSMENT: 1. New onset congestive heart failure. 2. Urinary tract infection. 3. Left leg cellulitis. 4. Hypertension, new onset. PLAN: She was admitted to the medical unit, placed on healthy heart diet, telemetry, O2 per protocol. We will check an echocardiogram today. We will check a urine culture. Blood cultures x2 are pending. We started her on Coreg 6.25 mg p.o. q.12 h., clindamycin 600 mg IV q.8 h., Lasix 40 mg IV q.12 h., Rocephin 1 gram IV q.24 h. We will do an daily weights. We will recheck a CBC and BMP in the a.m. and further orders after seen by attending. Dictated by CINDI Resendez for Bo Roy MD cc: CINDI Resendez MD Gregory S. Cheatham, MD Martha Read
[2018-12-29] MEDS ORDERED: APRESOLINE IV PRN (19:32)
--- NOTE | 2018-12-29 19:53 | PROGRESS NOTE ---
DATE: 12/29/2018 This is a 68-year-old female. Unclear if she has CHF, but she has cellulitis of her right leg. She had uncontrolled hypertension. She was admitted for possible CHF exacerbation, based on her studies, but she does not clearly have a diagnosis of that. She has a UTI. Her pulmonary exam is diminished throughout. Abdominal exam is benign. Her right lower extremity has some erythema, which is not completely typical for that. We will continue diuresis, treatment with empiric antibiotics for cellulitis, continue blood pressure control, and follow closely. cc: MD Tai Grullon MD
[2018-12-29] MEDS: DESYREL PO PRN (22:43)
[2018-12-30] MEDS: CLINDAMYCIN 600 MG/D5W 600 MG/50 ML IVPB IV SCH ×3 (02:28→17:38)
[2018-12-30] MEDS: LOVENOX SUBQ SCH (05:37)
[2018-12-30] MEDS: DUONEB (A & A) INH PRN (07:32)
[2018-12-30 07:41] LABS: BASO# 0.01 X1000 (0.0-0.2); BASO% 0.1 % (0.0-0.8); HEMATOCRIT 34.3 % (37.0-47.0); HEMOGLOBIN 10.5 g/dL (12.0-16.0); IMM GRAN# 0.02 X1000 (0.0-0.04); IMM GRAN% 0.3 % (0.0-0.5); LYMPH# 2.36 X1000 (1.2-3.4); LYMPH% 31.1 % (20.5-51.1); MCH 24.9 PG (27-31); MCHC 30.6 g/dL (33-37); MCV 81.5 FL (81-99); MONO# 0.51 X1000 (0.11-0.59); MONO% 6.7 % (1.7-9.3); MPV 8.4 FL (7.4-10.4); NEUT# 4.68 X1000 (1.4-6.5); NEUT% 61.8 % (42.2-75.2); PLT 215 X1000 (130-400); RBC 4.21 XMIL (4.2-5.4); RDW 17.2 % (11.5-14.5); WBC 7.58 X1000 (4.8-10.8)
[2018-12-30 08:12] LABS: AGAP 13; BUN 14 mg/dL (8-22); CALCIUM 7.8 mg/dL (8.8-10.2); CHLORIDE 92 mmol/L (98-107); COSMO 268; CREATININE 0.7 mg/dL (0.5-0.9); ESTIMATED GFR > 60; GLUCOSE 117 mg/dL (70-104); POTASSIUM 3.5 mmol/L (3.5-5.1); SODIUM 133 mmol/L (136-145); TCO2 28 mmol/L (25-35)
[2018-12-30] MEDS: ROCEPHIN 1 GM in NS 50 ML IV SCH (09:05)
[2018-12-30] MEDS: LASIX IV SCH ×2 (09:06→22:01)
[2018-12-30] MEDS: COREG PO SCH ×2 (09:06→22:01)
--- NOTE | 2018-12-30 18:46 | PROGRESS NOTE ---
DATE: 12/30/2018 SUBJECTIVE: She says she feels about the same. Really not that much better, but overall all her clinical parameters have improved. OBJECTIVE: Blood pressure 145/87, heart rate 71, respiratory rate 20, temperature 98 degrees, 96% on room air.Cardiovascular: Regular rate and rhythm. Pulmonary: Bilateral breath sounds. Clear to auscultation or diminished at bases. GI: Was soft, nontender, nondistended. Bowel sounds are positive. LABORATORY DATA: White count 7, hemoglobin and hematocrit 10 and 34, platelets 215,000. Sodium 133. PROBLEM LIST: 1. Congestive heart failure exacerbation is improved. I think we can probably switch her to p.o. Lasix in the morning. 2. Gram-negative annalee urinary tract infection. She is on Rocephin. We are waiting on sensitivities. 3. Cellulitis. I would say of left and right lower extremity, improved on clindamycin and Rocephin. DISPOSITION: Anticipate possible discharge in next 1 to 2 days. I am still waiting on her echocardiogram report. cc: MD Tai Grullon MD
[2018-12-30] MEDS: TYLENOL PO PRN (22:18)
[2018-12-30] MEDS: DESYREL PO PRN (22:18)
[2018-12-31] MEDS: CLINDAMYCIN 600 MG/D5W 600 MG/50 ML IVPB IV SCH ×3 (02:03→17:29)
[2018-12-31] MEDS: LOVENOX SUBQ SCH (05:06)
[2018-12-31 07:05] LABS: BASO# 0.03 X1000 (0.0-0.2); BASO% 0.4 % (0.0-0.8); EOS# 0.03 X1000 (0.0-0.7); EOS% 0.4 % (0.0-10.0); HEMOGLOBIN 10.4 g/dL (12.0-16.0); IMM GRAN# 0.02 X1000 (0.0-0.04); IMM GRAN% 0.3 % (0.0-0.5); LYMPH# 2.14 X1000 (1.2-3.4); LYMPH% 27.8 % (20.5-51.1); MCH 25.2 PG (27-31); MCHC 31.5 g/dL (33-37); MCV 80.1 FL (81-99); MONO# 0.77 X1000 (0.11-0.59); NEUT% 61.1 % (42.2-75.2); PLT 197 X1000 (130-400); RBC 4.12 XMIL (4.2-5.4); RDW 17.1 % (11.5-14.5); WBC 7.69 X1000 (4.8-10.8)
[2018-12-31 07:19] LABS: ESTIMATED GFR > 60
[2018-12-31 07:20] LABS: AGAP 10; BUN 14 mg/dL (8-22); CALCIUM 7.6 mg/dL (8.8-10.2); CHLORIDE 89 mmol/L (98-107); COSMO 257; CREATININE 0.5 mg/dL (0.5-0.9); GLUCOSE 126 mg/dL (70-104); POTASSIUM 3.5 mmol/L (3.5-5.1); SODIUM 127 mmol/L (136-145); TCO2 28 mmol/L (25-35)
[2018-12-31] MEDS: COREG PO SCH ×2 (08:35→21:06)
[2018-12-31] MEDS: ROCEPHIN 1 GM in NS 50 ML IV SCH (08:35)
--- NOTE | 2018-12-31 17:29 | ECHO REPORT ---
ORDER DATE: 12/29/2018 ECHOCARDIOGRAPHIC MEASUREMENTS: 1. Interventricular septum 1.3. 2. Left ventricular posterior wall 1.3. 3. Diastolic diameter 5.0. 4. Left atrium 3.5. 5. Aorta 3.4 cm. SUMMARY OF IMAGIN. Technically suboptimal study. Poor acoustic window. 2. Left ventricular size assessment cannot be performed, as technically suboptimal. 3. Mitral valve was normal. 4. Pulmonic valve not well visualized. 5. Aortic valve leaflets were trileaflet. There is mild mitral regurgitation. 6. Mild tricuspid regurgitation. Peak velocity across the tricuspid valve less than 2 m/sec. 7. Peak velocity across the aortic valve less than 2 m/sec by Doppler studies. There is no aortic stenosis or regurgitation. FINDINGS: Technically suboptimal study with [employer]ison. There was no significant good visualization of her left ventricular systolic function. Normal left ventricular cavity size. Concentric left ventricular hypertrophy. Estimated ejection fraction of 50% to 55%. There is appears to be inferior wall hypokinesis, mild. There is no pericardial effusion. cc: MD Nettie Ramirez CRNP Gregory S. Cheatham, MD
[2018-12-31] MEDS ORDERED: SAMSCA PO ONE (18:37)
--- NOTE | 2018-12-31 19:54 | PROGRESS NOTE ---
DATE: 12/31/2018 SUBJECTIVE: The patient has no major issues. OBJECTIVE: Vital Signs: Blood pressure 167/97, heart rate 70, respiratory rate 20, temperature 98.3 degrees. Cardiovascular: Regular rate and rhythm. Pulmonary: Bilateral breath sounds, clear to auscultation. GI: Abdomen is soft, nontender, nondistended. Bowel sounds are positive. Extremity: No clubbing or cyanosis. Lymphatics: No peripheral edema. Neurological: Nonfocal. LABORATORY DATA: Her sodium has dropped to 127, which may be due to the diuretics. Her echocardiogram showed an EF of 50% to 55% with some inferior wall hypokinesis and no pericardial effusion. ASSESSMENT/PLAN: 1. She may have CHF. We are going to see how she does with p.o. Lasix. 2. Urinary tract infection. She has an E coli urinary tract infection that is sensitive to Keflex. She is currently on Rocephin, I believe, so we can switch her to Keflex tomorrow. 3. Hyponatremia. We will give her a dose of Samsca today just to aid in aquaresis. Tomorrow we will see how things look, but I anticipate discharge tomorrow. cc: MD Tai Grullon MD
[2019-01-01] MEDS: TYLENOL PO PRN ×2 (00:39→22:40)
[2019-01-01] MEDS: DESYREL PO PRN ×2 (00:39→22:41)
[2019-01-01] MEDS: CLINDAMYCIN 600 MG/D5W 600 MG/50 ML IVPB IV SCH ×3 (01:56→16:47)
[2019-01-01] MEDS: LOVENOX SUBQ SCH (05:08)
[2019-01-01 06:38] LABS: BASO# 0.03 X1000 (0.0-0.2); BASO% 0.4 % (0.0-0.8); HEMATOCRIT 33.5 % (37.0-47.0); HEMOGLOBIN 10.6 g/dL (12.0-16.0); IMM GRAN# 0.04 X1000 (0.0-0.04); IMM GRAN% 0.5 % (0.0-0.5); LYMPH# 2.27 X1000 (1.2-3.4); LYMPH% 28.9 % (20.5-51.1); MCH 25.1 PG (27-31); MCHC 31.6 g/dL (33-37); MCV 79.4 FL (81-99); MONO# 0.68 X1000 (0.11-0.59); MONO% 8.7 % (1.7-9.3); MPV 8.4 FL (7.4-10.4); NEUT# 4.84 X1000 (1.4-6.5); NEUT% 61.5 % (42.2-75.2); PLT 245 X1000 (130-400); RBC 4.22 XMIL (4.2-5.4); WBC 7.86 X1000 (4.8-10.8)
[2019-01-01 07:02] LABS: ESTIMATED GFR > 60
[2019-01-01 07:05] LABS: AGAP 10; BUN 15 mg/dL (8-22); CALCIUM 7.8 mg/dL (8.8-10.2); CHLORIDE 88 mmol/L (98-107); COSMO 255; CREATININE 0.6 mg/dL (0.5-0.9); GLUCOSE 114 mg/dL (70-104); POTASSIUM 3.7 mmol/L (3.5-5.1); SODIUM 126 mmol/L (136-145); TCO2 28 mmol/L (25-35)
[2019-01-01] MEDS: DUONEB (A & A) INH PRN (07:59)
[2019-01-01] MEDS: ROCEPHIN 1 GM in NS 50 ML IV SCH (09:35)
[2019-01-01] MEDS: COREG PO SCH ×2 (09:35→20:28)
[2019-01-01] MEDS ORDERED: SAMSCA PO ONE (11:09)
[2019-01-01] MEDS ORDERED: LASIX IV ONE (19:20)
[2019-01-01] MEDS: LASIX PO SCH (20:28)
--- NOTE | 2019-01-01 22:13 | PROGRESS NOTE ---
DATE: 01/01/2019 SUBJECTIVE: The patient has no major complaints. OBJECTIVE: Blood pressure 146/80, heart rate of 82, respiratory rate 18, temperature 98.3 degrees, 93% on room air.Cardiovascular: Regular rate and rhythm. Pulmonary: Bilateral breath sounds, clear to auscultation. GI: Soft, nontender, nondistended. Bowel sounds are positive. On her skin exam, her redness on her right lower extremity is improved. Left lower extremity improved. LABORATORY DATA: White count 7, hemoglobin and hematocrit 10 and 33, platelets 245,000. Sodium down to 126. The rest of the numbers were okay. Escherichia coli UTI which is not ESBL. ASSESSMENT AND PLAN: 1. Congestive heart failure. She was on oral Lasix, which I guess we stopped, but I do not know. She is also hyponatremic. We will continue treatment and follow. I am waiting on her echocardiogram report. 2. Hyponatremia. We will re-dose with Samsca and follow. Check urine electrolytes. 3. Escherichia coli urinary tract infection which is sensitive to cephalosporins, so we will change her and discharge on Keflex. 4. Right and left cellulitis, lower extremities. We will continue clindamycin as an outpatient. 5. Disposition: I anticipate discharge tomorrow if her sodium is improved. cc: MD Tai Grullon MD
[2019-01-02] MEDS: CLINDAMYCIN 600 MG/D5W 600 MG/50 ML IVPB IV SCH ×2 (02:32→09:54)
[2019-01-02] MEDS: LOVENOX SUBQ SCH (05:22)
[2019-01-02 06:52] LABS: BASO# 0.02 X1000 (0.0-0.2); BASO% 0.3 % (0.0-0.8); HEMATOCRIT 35.6 % (37.0-47.0); HEMOGLOBIN 11.3 g/dL (12.0-16.0); IMM GRAN# 0.01 X1000 (0.0-0.04); IMM GRAN% 0.2 % (0.0-0.5); LYMPH# 2.19 X1000 (1.2-3.4); LYMPH% 36.6 % (20.5-51.1); MCHC 31.7 g/dL (33-37); MPV 8.4 FL (7.4-10.4); NEUT# 3.16 X1000 (1.4-6.5); NEUT% 52.9 % (42.2-75.2); PLT 206 X1000 (130-400); RBC 4.34 XMIL (4.2-5.4); RDW 17.3 % (11.5-14.5); WBC 5.98 X1000 (4.8-10.8)
[2019-01-02 07:12] LABS: AGAP 13; BUN 14 mg/dL (8-22); CALCIUM 8.2 mg/dL (8.8-10.2); CHLORIDE 96 mmol/L (98-107); COSMO 275; CREATININE 0.7 mg/dL (0.5-0.9); ESTIMATED GFR > 60; GLUCOSE 113 mg/dL (70-104); POTASSIUM 3.5 mmol/L (3.5-5.1); SODIUM 137 mmol/L (136-145); TCO2 28 mmol/L (25-35)
[2019-01-02] MEDS: DUONEB (A & A) INH PRN (08:11)
[2019-01-02] MEDS: COREG PO SCH (08:35)
[2019-01-02] MEDS: LASIX PO SCH (08:35)
[2019-01-02] MEDS: ROCEPHIN 1 GM in NS 50 ML IV SCH (08:35)
[2019-01-02 08:44] VITALS: BP 174/92
--- NOTE | 2019-01-04 10:21 | DISCHARGE SUMMARY ---
ADMISSION DATE: 12/28/2018 DISCHARGE DATE: 01/02/2019 Briefly a 68-year-old female presenting with shortness of breath, also redness, swelling her lower extremity, also E. coli urinary tract infection. Patient day of discharge doing well. She still has some erythema of her legs but her breathing is better. Plan is to discharge today on clinda and Keflex and new medicines will be Lasix and Coreg. Her echocardiogram did not show clear CHF but she is obese but EF was 50-55%. She may have some diastolic dysfunction. Will continue to monitor. This is a [id number] encounter note with Nettie Barton. cc: MD Tai Grullon MD
== END 2019-01-02 13:42 | disposition home or self-care (01) | DRG 291 ==
LOC: P.ED 16:17 → P.MEDSURG 16:17 → SUATTDRO 21:46 → OBSVTOIN 21:46
PROVIDERS: ADMIT Family Medicine; ATTEND Internal Medicine